=== PATIENT | female | born 1970 | race Caucasian/White ===

== ENCOUNTER 2020-12-26 15:59 | Emergency (ER) | payer BC, SELFPAY ==
[2020-12-26] VITALS (14 sets, daily range): BP systolic 105–138; BP diastolic 61–94; PULSE 89–94; RESP 16–19; TEMP 36.7; O2SAT 96–98
--- NOTE | 2020-12-26 16:08 | ED.GENADUL_ITS ---
Discharge Plan Disposition Patient Disposition: HOME Condition: Good Discharge Details Clinical Impression: Sting Primary Care Provider: Aristeo Duckworth ED Provider: Karoline Sanford Home Meds and New Rx's Prescriptions: New prednisone 20 mg tablet 20 mg PO BID Qty: 6 RF: 0 Continued calcium carbonate-vitamin D3 1 EACH tablet 1 ea PO DAILY RF: 0 black cohosh root extract 40 MG capsule 40 mg PO DAILY RF: 0 Discharge Instructions Additional Instructions: Please follow-up with primary care physician in 24 to 48 hours for reevaluation With persistent redness and swelling tomorrow, I recommend continuing your prednisone, you did receive a dose today, you may take Zyrtec or Claritin at home for the next 48 hours, you may ice and elevate extremity You should carry your EpiPen with you, if you develop facial swelling, difficulty swallowing, shortness of breath, please return for reevaluation Discharge Data Discharge Date/Time-TO BE ENTERED AT DEPARTURE: 12/26/20 17:25 Medical Decision Making Patient appears well, she has no clinical evidence of interval, she was observed for 1.5 hours She was given oral Benadryl, prednisone, and Pepcid She was discharged home on prednisone and Zyrtec She given a threshold to return with new or worsening complaints Her sting site looks improved, she is completely asymptomatic aside from some mild central pain to the sting site Discussed appropriate use of epinephrine pen with patient Medical Records Medical records reviewed: Yes I reviewed the patient's medical records. Lab Data Lab results reviewed: Yes I reviewed the patient's lab results. HPI General Mode of arrival: ambulatory . Date/Time Provider Initiated Documentation: 12/26/20 16:07 . Limitations to Documentation: no limitations . Information obtained by: patient . HPI Narrative: This 50-year-old female presents with report of bee sting to right posterior thigh. Patient states she has a history of local reaction to bee sting in the past. She states she has needed prednisone as she has significant swelling to the entire affected extremity. She does not have EpiPen but states that she is never had any difficulty swallowing or shortness of breath. She history of anaphylaxis. She was stung approximately 5 minutes prior to arrival. She denies any chest pain, shortness of breath, dizziness, weakness. She has pain and redness to the affected area. She did not visualize the offending agent. She denies any arley sea or vomiting. She did not use her EpiPen. Related Data Home Medications Medication Instructions Recorded Confirmed black cohosh root extract 40 mg PO DAILY 11/23/12 11/23/12 calcium carbonate-vitamin D3 1 ea PO DAILY 11/23/12 11/23/12 prednisone 20 mg PO BID #6 tab 12/26/20 Previous Rx's Medication Instructions Recorded prednisone 20 mg PO BID #6 tab 12/26/20 Allergies Allergy/AdvReac Type Severity Reaction Status Date / Time No Known Allergies Allergy Unverified 11/23/12 08:58 Review of Systems All systems reviewed & are unremarkable except as noted in HPI and below PFSH Social History Smoking/Tobacco Use Status: Former Tobacco Use Tobacco: How many years used: 20 Smoking risk assessment performed?: Yes Alcohol Intake: current Alcohol Intake frequency: a few times a month Drug use: Never Substance use type: other Details: CBD Do you feel safe at home: Yes Do you feel safe in your relationship?: Yes Exam Const General: cooperative, comfortable and no acute distress HENMT Other: Uvula midline, oropharynx patent Neck Other: No stridor Resp Effort & Inspection: normal respiratory effort Auscultation: clear to auscultation bilaterally Cardio Rate: regular rate Rhythm: regular rhythm Skin Other: Approximately 6 inch area of erythremia surrounding central single site, no urticaria to right posterior thigh Neuro General: patient alert and patient oriented x3 Extrem Other: Distal pulses intact
[2020-12-26] MEDS: Acetaminophen 325 MG TAB 650 MG PO (16:15)
[2020-12-26] MEDS: Famotidine 20 MG TAB 40 MG PO (16:15)
[2020-12-26] MEDS: predniSONE 20 MG TAB 40 MG PO (16:16)
[2020-12-26] MEDS: Cetirizine 10 MG TAB PO (16:20)
--- NOTE | 2020-12-26 16:56 | NUR.NOTE ---
Nursing Note: Patient resting in bed, alert. Respirations even and non-labored.
== END 2020-12-26 17:25 | disposition home or self-care (01) ==
PROVIDERS: Emergency Provider Physician Assistant; PCP Family Medicine
DX: T63.451A Toxic effect of venom of hornets, accidental (unintentional), initial encounter (principal)
CPT/HCPCS: 99283; J7512